=== PATIENT | male | born 1960 | race Hispanic/Latino ===

== ENCOUNTER → 2019-12-04 | Outpatient (CLI) | payer OTHER | END | disposition home or self-care (01) | LOC: RAH 10:42 | PROVIDERS: ATTEND Family Medicine | DX: Z13.6 Encounter for screening for cardiovascular disorders (principal) | CPT/HCPCS: 75571 ==

== ENCOUNTER → 2025-07-10 | Emergency (ER) | payer BC ==
[~2025-07-10] VITALS: Ht 165.1 cm; Wt 72.6 kg
[~2025-07-10] MED LIST: CHLO25TA3 PO; FURO20TA4 PO; OMEP40CA21 PO; POTA-192 PO
[2025-07-10 21:18] VITALS: BP 171/76; PULSE 84; RESP 20; TEMP 98.4
[2025-07-10 22:05] LABS: IMMATURE GRANULOCYTE ABSOLUTE 0.01 K/uL (0-1); NUCLEATED RED BLOOD CELLS 0.0 % (0.0-0.19); PLATELET COUNT (AUTO) 116 K/uL (130-400); RED BLOOD CELL COUNT(AUTO) 3.04 MIL/uL (4.50-6.20); RED CELL DISTRIBUTION WIDTH 16.0 % (11.0-15.5); WHITE BLOOD COUNT (AUTO) 4.5 K/uL (4.8-10.8)
--- NOTE | 2025-07-10 22:14 | EKG ---
[facility] Test Date: 2025-07-10 Test Time: 22:08:03 Pat Name: ANNA CALIX Department: ED Room: Gender: M [employer] In[employer]: [facility] [place] : 1960 Requested By: JOSE ALFREDO AVILES Order Number: [id number] Reading MD: Margaret Denton Measurements Intervals [place] Rate: 70 P: 22 [place]: 170 QRS: -27 QRSD: 87 T: 6 QT: 424 QTc: 458 Interpretive Statements Sinus rhythm No previous ECG available for comparison Electronically Signed On 07-11-2025 10:25:55 CDT by Margaret Denton Please click the below link to view image of tracing.
[2025-07-10 22:17] LABS: CREATININE 0.8 mg/dL (0.5-1.3); GLOMERULAR FILTR. RATE CALC 100.0 mL/min (>90); GLUCOSE,RANDOM 106.0 mg/dL (70-105); SODIUM SERUM 140.0 mmol/L (136-145); UREA NITROGEN, BLOOD 6.0 mg/dL (7-18)
[2025-07-10 22:24] LABS: ASPARTATE AMINOTRANSFERASE 45.0 U/L (10-37); CREATINE KINASE, TOTAL 197.0 U/L (21-232); TOTAL PROTEIN, SERUM 7.0 g/dL (6.0-8.3)
--- NOTE | 2025-07-10 22:47 | HMCIMG ---
EXAM: CR Chest, 1 View. CLINICAL HISTORY: gi bleed COMPARISON: None provided. FINDINGS: LUNGS: There is no mass, infiltrate, or acute pulmonary abnormality. PLEURAL SPACES: No pleural effusion or pneumothorax. MEDIASTINUM: The cardiomediastinal silhouette is within normal limits. BONES: No acute osseous abnormality. IMPRESSION: No acute cardiopulmonary pathology is evident. /[place]
--- NOTE | 2025-07-11 00:21 | ERN ---
ED Note History of Present Illness Stated Complaint: C/O ABNORMAL LABS Chief Complaint: Abnormal Labs Time Seen by MD: 21:22 Dictation: PATIENT LEFT WITHOUT BEING SEEN He was sent from his primary care physician's office for abnormal labs and low hemoglobin Horses or I could not find him in the lobby multiple times that we checked Allergies: Coded Allergies: No Known Allergies (Unverified Allergy, Unknown, 09/11/24) Home Meds Reported Medications Potassium Chloride (K-Dur/Klor-Con) 20 Meq Ertab, 1 TAB PO DAILY for 30 Days, #30 TAB 0 Refills 09/11/24 Furosemide (Furosemide) 20 Mg Tablet, 1 TAB PO DAILY for 30 Days, #30 TAB 0 Refills 09/11/24 Chlorthalidone (Chlorthalidone) 25 Mg Tablet, 1 TAB PO DAILY for 30 Days, #30 TAB 0 Refills 09/11/24 Omeprazole (Omeprazole) 40 Mg Capsule.dr, 1 CAP PO DAILY for 30 Days, #30 CAP 0 Refills 09/11/24 Past Medical History Past Medical History: Other Additional Past Medical Hx: CIRRHOSIS OF LIVER Surgical History: Other Surgical History Other: HERNIA REPAIR RN Note Reviewed/Agreed w/PFSH: Yes Review of System Dictation Left without being seen Initial Vital Sign VS Vital Signs Date Time Temp Pulse Resp B/P (MAP) Pulse Ox O2 Delivery O2 Flow Rate FiO2 07/10/25 21:18 98.4 84 20 171/76 100 Room Air Physical Exam Dictation Left without being seen Results (Laboratory/Radiology) Laboratory/Radiology Laboratory Tests Test 07/10/25 21:58 White Blood Count 4.5 K/uL (4.8-10.8) L Red Blood Count 3.04 MIL/uL (4.50-6.20) L Hemoglobin 7.1 g/dL (14.0-18.0) L Hematocrit 24.2 % (42-54) L Mean Corpuscular Volume 79.6 fL (79-99) Mean Corpuscular Hemoglobin 23.4 pg (27.0-33.0) L Mean Corpuscular Hemoglobin Concent 29.3 g/dL (32.0-36.0) L Red Cell Distribution Width 16.0 % (11.0-15.5) H Platelet Count 116 K/uL (130-400) L Mean Platelet Volume 9.9 fL (7.5-10.5) Immature Granulocyte % (Auto) 0.2 % (0-1) Neutrophils (%) (Auto) 64.3 % (40.0-77.0) Lymphocytes (%) (Auto) 26.5 % (21.0-51.0) Monocytes (%) (Auto) 8.2 % (3.0-13.0) Eosinophils (%) (Auto) 0.4 % (0.0-8.0) Basophils (%) (Auto) 0.4 % (0.0-5.0) Neutrophils # (Auto) 2.9 K/uL (1.8-7.7) Lymphocytes # (Auto) 1.2 K/uL (1.0-4.8) Monocytes # (Auto) 0.4 K/uL (0.1-1.0) Eosinophils # (Auto) 0.02 K/uL (0.00-0.70) Basophils # (Auto) 0.02 K/uL (0.00-0.20) Absolute Immature Granulocyte (auto 0.01 K/uL (0-1) Nucleated Red Blood Cells 0.0 % (0.0-0.19) Red Blood Cell Morphology See comments Sodium Level 140 mmol/L (136-145) Potassium Level 3.8 mmol/L (3.5-5.1) Chloride Level 103 mmol/L (101-111) Carbon Dioxide Level 28 mmol/L (21-32) Blood Urea Nitrogen 6 mg/dL (7-18) L Creatinine 0.8 mg/dL (0.5-1.3) Glomerular Filtration Rate Calc 100 mL/min (>90) Random Glucose 106 mg/dL (70-105) H Total Calcium 8.2 mg/dL (8.5-10.1) L Total Bilirubin 1.2 mg/dL (0.2-1.0) H Aspartate Amino Transf (AST/SGOT) 45 U/L (10-37) H Alanine Aminotransferase (ALT/SGPT) 30 U/L (12-78) Alkaline Phosphatase 207 U/L (50-136) H Total Creatine Kinase 197 U/L (21-232) Troponin I High Sensitivity 21.9 ng/L (4-75) Total Protein 7.0 g/dL (6.0-8.3) Albumin 3.3 g/dL (3.5-5.0) L Lipase 18 U/L (16-77) Labs Reviewed?: Yes X-RAY Comment: REASON: gi bleed ORDERING PHYSICIAN: JOSE ALFREDO AVILES MD PROCEDURE: CXR1VW - CHEST 1VW EXAM: CR Chest, 1 View. CLINICAL HISTORY: gi bleed COMPARISON: None provided. FINDINGS: LUNGS: There is no mass, infiltrate, or acute pulmonary abnormality. PLEURAL SPACES: No pleural effusion or pneumothorax. MEDIASTINUM: The cardiomediastinal silhouette is within normal limits. BONES: No acute osseous abnormality. IMPRESSION: No acute cardiopulmonary pathology is evident. /[place] DICTATED BY: EFFIE CELAYA MD DATE: 07/10/252346 ELECTRONICALLY SIGNED BY: EFFIE CELAYA MD DATE: 07/10/252346 ED Course ED Course Orders Procedure Category Date Status Time Cardiac Panel LAB 07/10/25 Complete 21:35 Cbc With Differential LAB 07/10/25 Complete 21:35 Comprehensive LAB 07/10/25 Complete Metabolic Panel 21:35 Urinalysis Profile LAB 07/10/25 Logged 21:35 Occult Blood Stool LAB 07/10/25 Logged Single Only 21:35 12 Lead Ekg Tracing- EKG 07/10/25 Complete Technical 21:35 Creatine Kinase, Total LAB 07/10/25 Complete 21:35 Chest 1vw RAD 07/10/25 Resulted 21:35 Lipase LAB 07/10/25 Complete 21:35 Vital Signs Date Time Temp Pulse Resp B/P (MAP) Pulse Ox O2 Delivery O2 Flow Rate FiO2 07/10/25 21:18 98.4 84 20 171/76 100 Room Air We will perform diagnostic labs, advanced imaging and administer medications according to the patient's complaint. Once the results are available, will review and personally interpreted the labs to rule out any acute life- threatening emergency the trach require immediate intervention and treatment. I will then re-evaluate the patient after treatment and diagnostic exams have return to determine whether the patient requires any further testing, can safely be discharged home or need further admission to hospital for additional treatment and evaluation. Medical Decision Making MDM Differential diagnosis: Severe anemia-esophageal varices, portal gastropathy, peptic ulcer disease , GI bleed due to diverticulosis I reviewed the chart in detail and also requested labs and could not find him in the lobby DX & DISP Disposition: Other(Comment) (Without being seen) Departure Impression: Primary Impression: Anemia Condition: Stable Additional Instructions: Patient left without being seen due to extremely busy ER and delayed wait times Referrals: RASHAD CAMARILLO (PCP) JOSE ALFREDO AVILES MD Jul 11, 2025 00:21
--- NOTE | 2025-07-11 01:07 | NUR ---
CALLED FOR PT IN LOBBY TO MOVE TO BED; NO RESPONSE; PT NOT FOUND IN LOBBY.
== END | disposition left against medical advice (07) ==
LOC: EDH 21:17
DX: D64.9 Anemia, unspecified (principal); Z53.29 Procedure and treatment not carried out because of patient's decision for other reasons; Z79.899 Other long term (current) drug therapy; Z98.890 Other specified postprocedural states
CPT/HCPCS: 36415; 71045; 80053; 82550; 83690; 84484; 85025; 93005; 99284

== ENCOUNTER → 2025-08-17 | Outpatient (CLI) | payer OTHER ==
--- NOTE | 2025-08-18 09:22 | HMCIMG ---
EXAM: CT Cardiac calcium scoring. CLINICAL HISTORY: Screening. TECHNIQUE: Thin collimated axial CT cardiac images were obtained. A CT scan is done according to ALARA (As Low As Reasonably Achievable). CONTRAST: None. COMPARISON: None provided. FINDINGS: Calcium Score: VESSEL Number of lesions Volume mm3 Equi. Mass/mg Calcium score LM 2 112.7 - 147.6 LAD 3 95.3 - 136.0 LCX 7 73.5 - 104.0 RCA 1 19.1 - 28.7 Total 13 300.5 - 416.3 IMPRESSION: The total calcium score is 416.3. 83rd percentile. /[place]
== END | disposition home or self-care (01) ==
LOC: RAH 11:41
PROVIDERS: ATTEND Family Medicine
DX: Z13.6 Encounter for screening for cardiovascular disorders (principal)
CPT/HCPCS: 75571